=== PATIENT | male | born 1960 | race Caucasian/White ===

== ENCOUNTER 2022-04-04 15:02 | Emergency (ER) | payer MEDICAID ==
[~2022-04-04] VITALS: Ht 182.9 cm; Wt 74.8 kg
[~2022-04-04 15:02] MED LIST: ASCO500; ATOR40TA PO; Aspir 8181 MG PO; CARV3.125 PO; CEPH500 PO; CHLO25 PO; DELTASONE20 MG PO; FOLI1 PO; GLUC500; HYDACE5 PO; IBUP800 PO; Multivitamin1 EAC1 PO; SULTRIDS PO; THIA100 PO; TORSE20 PO
[2022-04-04] MEDS ORDERED: PROAIR DIGIHAL90 MCG INH (15:22)
[2022-04-04] MEDS ORDERED: ATOR40TA PO (15:22)
[2022-04-04] MEDS ORDERED: Aspirin EC81 MG PO (15:22)
[2022-04-04] MEDS ORDERED: Prinivil5 MG PO (15:22)
[2022-04-04] MEDS ORDERED: Prozac20 MG PO (15:22)
[2022-04-04] MEDS ORDERED: Flomax0.4 MG PO (15:22)
== END 2022-04-04 15:25 | disposition home or self-care (01) ==
LOC: ER 15:02
DX: Z76.0 Encounter for issue of repeat prescription (principal); F17.210 Nicotine dependence, cigarettes, uncomplicated; Z79.899 Other long term (current) drug therapy; Z79.82 Long term (current) use of aspirin
CPT/HCPCS: 99281

== ENCOUNTER 2022-05-06 10:29 | Observation (INO) | payer MEDICAID ==
[~2022-05-06 10:29] MED LIST changes: +Aspirin EC81 MG PO; +Flomax0.4 MG PO; +PROAIR DIGIHAL90 MCG INH; +Prinivil5 MG PO; +Prozac20 MG PO
[2022-05-06 11:11] LABS: BASOPHILS ABSOLUTE AUTO 0.05 K/mm3 (0.00-0.23); BASOPHILS PERCENT AUTO 0 % (0-2); EOSINOPHILS ABSOLUTE AUTO 0.23 K/mm3 (0.00-0.68); EOSINOPHILS PERCENT AUTO 1 % (0-6); Hematocrit 38.1 % (37.0-53.0); Hemoglobin 13.7 g/dL (13.5-17.5); IMMATURE GRAN ABSOLUTE AUTO 0.07 K/mm3 (0.00-0.10); IMMATURE GRAN PERCENT AUTO 0 % (0-1); LYMPHOCYTES PERCENT AUTO 11 % (21-46); MONOCYTES ABSOLUTE AUTO 0.86 K/mm3 (0.16-1.47); MONOCYTES PERCENT AUTO 5 % (4-13); Mean Corpuscular HGB 32.1 pg (26.0-34.0); Mean Corpuscular Volume 89 fL (80-100); Mean Platelet Volume 10.2 fL (9.1-12.4); NEUTROPHILS ABSOLUTE AUTO 13.57 K/mm3 (1.96-9.15); NEUTROPHILS PERCENT AUTO 82 % (41-73); Platelet Count 295 K/mm3 (150-400); RDW Coefficient Variation 12.9 % (11.7-14.2); Red Blood Cell Count 4.27 M/mm3 (4.30-5.90); White Blood Cell Count 16.58 K/mm3 (4.00-11.30)
[2022-05-06 11:28] LABS: Albumin/Globulin Ratio 0.9 (0.8-1.8); Bilirubin, Total 0.6 mg/dL (0.1-1.0); Bun/Creatinine Ratio 8.2 (12.0-20.0); Creatinine, Blood 0.61 mg/dL (0.60-1.20); Globulin, Blood 3.4 g/dL (2.2-4.0); Potassium, Blood 3.7 mmol/L (3.5-5.5); Total Protein, Blood 6.4 g/dL (6.4-8.2)
--- NOTE | 2022-05-06 17:22 | NUR ---
ADMIT PT ADMITTED TO ROOM 306. PT ORIENTED TO ROOM AND CALL LIGHT. DR. GÓMEZ NOTIFED OF WOUND TO LEFT POSTERIOR HEAD. SLUFF IN WOUND BED. ORDER FOR CALCIUM ALGINATE OBTAINED FOR TONIGHT AND TO BE REEVALUATED BY MEAT CUTTER APPRENTICE. WOUND CARE COMPLETED & PHOTO TAKEN. NS HUNG AND RUNNING 150ML/HR. PT DENIES SHORT AT THIS TIME UNLESS WOUND CARE IS BEING COMPLETED. DENIES NAUSEA, CP/PRESSURE, SOB. ALERT AND ORINETED AT THIS TIME. ENCOURAGED TO CALL BEFORE GETTING OUT OF BED. STATES UNDERSTANDING. VS REVIEWED.
[2022-05-06] MEDS ORDERED: ACET325 PO (18:28)
--- NOTE | 2022-05-06 18:29 | NUR ---
RN PLACED PHONECALL TO PT'S EX-, PHILLIP, WHO IS PT'S PRIMARY CAREGIVER. PHILLIP WAS AT HOME, AND ABLE TO DO A MED RECONCILLIATION OVER THE PHONE WITH PT'S HOME MEDS. PT GAVE VERBAL PERMISSION FOR RN TO TALK WITH PHILLIP.
[2022-05-07 07:25] LABS: BASOPHILS ABSOLUTE AUTO 0.04 K/mm3 (0.00-0.23); BASOPHILS PERCENT AUTO 0 % (0-2); EOSINOPHILS ABSOLUTE AUTO 0.31 K/mm3 (0.00-0.68); EOSINOPHILS PERCENT AUTO 3 % (0-6); Hematocrit 38.3 % (37.0-53.0); Hemoglobin 13.1 g/dL (13.5-17.5); IMMATURE GRAN ABSOLUTE AUTO 0.05 K/mm3 (0.00-0.10); IMMATURE GRAN PERCENT AUTO 1 % (0-1); LYMPHOCYTES ABSOLUTE AUTO 1.09 K/mm3 (0.84-5.20); LYMPHOCYTES PERCENT AUTO 10 % (21-46); MONOCYTES PERCENT AUTO 6 % (4-13); Mean Corpuscular HGB 31.3 pg (26.0-34.0); Mean Corpuscular HGB Conc 34.2 g/dL (31.5-36.5); Mean Corpuscular Volume 92 fL (80-100); Mean Platelet Volume 10.3 fL (9.1-12.4); NEUTROPHILS ABSOLUTE AUTO 8.75 K/mm3 (1.96-9.15); NEUTROPHILS PERCENT AUTO 80 % (41-73); Platelet Count 273 K/mm3 (150-400); RDW Coefficient Variation 13.2 % (11.7-14.2); RDW Standard Deviation 44.4 fL (35.1-46.3); Red Blood Cell Count 4.18 M/mm3 (4.30-5.90); White Blood Cell Count 10.94 K/mm3 (4.00-11.30)
[2022-05-07 07:44] LABS: Bun/Creatinine Ratio 6.4 (12.0-20.0); Calcium, Blood 7.6 mg/dL (8.5-10.1); Creatinine, Blood 0.62 mg/dL (0.60-1.20); Magnesium, Blood 1.9 mg/dL (1.6-2.4); Potassium, Blood 3.9 mmol/L (3.5-5.5)
--- NOTE | 2022-05-07 07:45 | NUR ---
AOX4, PLEASANT AND COOPERATIVE, ADEQUATE OUTPUT VOIDED INDEPENDENTLY IN URINAL. CALLS APPROPRIATELY. VSS ON RA. HEAD DRESSING CDI AT END OF SHIFT. CIWA MEASURED NO HIGHER THAN 5-6. NO MEDS GIVEN. LAST ALCOHOLIC DRINK WAS MORNING OF 05/06 PER PATIENT.
--- NOTE | 2022-05-07 14:07 | NUR ---
WOUND CARE LEFT PARIETAL WOUND IS FULL THICKNESS WITH EXPOSED STRUCTURES. WOUND BED IS PRIMARILY SLOUGH BUT BONE IS PALPABLE. WOUND WITH PURULENT DRAINAGE. CULTURE TAKEN AND DR. CARDONA NOTIFIED. CLEANSED WITH NANO ABREU TO WOUND BED, COVERED WITH EXU-DRY ROLLED GAUZE. NEXT DRESSING CHANGE DUE TUESDAY 05/09. PHOTO AND ASSESSMENT IN HARD CHART. ORDERS IN Tribe
--- NOTE | 2022-05-07 18:09 | NUR ---
SHIFT SUMMARY- PT IS A/O, PLESANT AND COOPERATIVE. HE WORKED WITH PT THIS SHIFT AND TOLORATED WELL. FAMILY WAS AT BEDSIDE THIS MORNING. DRESSING CHANGED BY WOUND CARE NURSE THIS SHIFT. CIWA SCORES HAVE BEEN STABLE. HE AMBULATED TO THE RESTROOM THIS SHIFT. HE IS EATING AND DRINKING WELL. HIS BED IS IN THE LOW POSITON AND CALL LIGHT IS WITIN REACH.
[2022-05-08 04:36] LABS: BASOPHILS ABSOLUTE AUTO 0.06 K/mm3 (0.00-0.23); BASOPHILS PERCENT AUTO 1 % (0-2); EOSINOPHILS ABSOLUTE AUTO 0.33 K/mm3 (0.00-0.68); EOSINOPHILS PERCENT AUTO 4 % (0-6); Hematocrit 38.3 % (37.0-53.0); Hemoglobin 13.3 g/dL (13.5-17.5); IMMATURE GRAN ABSOLUTE AUTO 0.05 K/mm3 (0.00-0.10); IMMATURE GRAN PERCENT AUTO 1 % (0-1); LYMPHOCYTES PERCENT AUTO 16 % (21-46); MONOCYTES ABSOLUTE AUTO 0.88 K/mm3 (0.16-1.47); MONOCYTES PERCENT AUTO 11 % (4-13); Mean Corpuscular HGB 31.7 pg (26.0-34.0); Mean Corpuscular HGB Conc 34.7 g/dL (31.5-36.5); Mean Corpuscular Volume 91 fL (80-100); Mean Platelet Volume 10.1 fL (9.1-12.4); NEUTROPHILS ABSOLUTE AUTO 5.45 K/mm3 (1.96-9.15); NEUTROPHILS PERCENT AUTO 68 % (41-73); Platelet Count 236 K/mm3 (150-400); RDW Coefficient Variation 13.2 % (11.7-14.2); RDW Standard Deviation 44.2 fL (35.1-46.3); Red Blood Cell Count 4.19 M/mm3 (4.30-5.90); White Blood Cell Count 8.07 K/mm3 (4.00-11.30)
--- NOTE | 2022-05-08 05:10 | NUR ---
PATIENT SLEPT WELL THROUGH THE NIGHT, ALERT ADN ORIENTED X4, COOPERATIVE WITH CARE. CIWA SCORE REMAINED AT 1, NO PAIN OR SOB REPORTED, HOWEVER EXP WHEEZE NOTED. PATINET CALLS TO MAKE NEEDS KNOW, BSA WITH BRP. DRESSING IS CDI. IV SALINE LOCKED AND WNL. WILL CONT TO MONITOR.
[2022-05-08 05:12] LABS: Albumin, Blood 2.9 g/dL (3.4-5.0); Bilirubin, Total 0.3 mg/dL (0.1-1.0); Bun/Creatinine Ratio 9.7 (12.0-20.0); Calcium, Blood 8.4 mg/dL (8.5-10.1); Creatinine, Blood 0.72 mg/dL (0.60-1.20); Globulin, Blood 2.8 g/dL (2.2-4.0); Magnesium, Blood 1.9 mg/dL (1.6-2.4); Potassium, Blood 4.5 mmol/L (3.5-5.5); Total Protein, Blood 5.7 g/dL (6.4-8.2)
[2022-05-08] MEDS ORDERED: CARV3.125 PO (12:40)
--- NOTE | 2022-05-08 14:39 | NUR ---
PT DISCHARGED FROM THE UNIT. IV REMOVED. MEDICATIONS FAXED TO [facility]. MEDICATIONS ADDED ON FAXED, ATTEMPTED TO CALL PT AND FAMILY TO NOTIFY THEM WITH NO ANSWER. CALLED [facility] TO NOTIFY THEM OF TWO ADDITIONS PRESCRIPTIONS AND LET THEM KNOW THE PT WAS NOT AWARE, PHARMACY SAID THEY WOULD NOTIFY PT. FAMILY DROVE PT HOME. INSTRUCTED TO ESTABLISH PRIMARY CARE, FOLLOW UP WITH WOUND CARE, CARDIOLOGY AND ADAPT. INSTRUCTED PT ON SIGNS TO WATCH FOR INCASE OF WITHRDRAWL SYMPTOMS
== END 2022-05-08 16:21 | disposition home or self-care (01) ==
LOC: ER 10:29 → MEDS 10:30
PROVIDERS: Nurse Practitioner Acute Care; Student in an Organized Health Care Education/Training Program; ADMIT Internal Medicine
DX: E87.1 Hypo-osmolality and hyponatremia (principal); F10.20 Alcohol dependence, uncomplicated; I11.0 Hypertensive heart disease with heart failure; I50.22 Chronic systolic (congestive) heart failure; N40.0 Benign prostatic hyperplasia without lower urinary tract symptoms; W19.XXXA Unspecified fall, initial encounter
CPT/HCPCS: 36415; 70450; 71045; 80048; 80053; 83735; 83880; 84295; 84443; 85025; 87070; 87075; 87077; 87147; 87186; 87205; 93005; 93010; 96365; 96366; 96372; 97116; 97162; 99285-25; A9270; G0378; G0480; J1650; J2765; J3475; J7030; J7040

== ENCOUNTER → 2023-01-21 | Outpatient (CLI) | payer OTHER ==
[~2023-01-21] MED LIST changes: +ACET325 PO
[2023-01-21 16:49] LABS: BASOPHILS ABSOLUTE AUTO 0.06 K/mm3 (0.00-0.23); BASOPHILS PERCENT AUTO 1 % (0-2); EOSINOPHILS ABSOLUTE AUTO 0.14 K/mm3 (0.00-0.68); EOSINOPHILS PERCENT AUTO 2 % (0-6); Hematocrit 37.1 % (37.0-53.0); Hemoglobin 13.1 g/dL (13.5-17.5); IMMATURE GRAN ABSOLUTE AUTO 0.05 K/mm3 (0.00-0.10); IMMATURE GRAN PERCENT AUTO 1 % (0-1); LYMPHOCYTES ABSOLUTE AUTO 1.88 K/mm3 (0.84-5.20); LYMPHOCYTES PERCENT AUTO 25 % (21-46); MONOCYTES PERCENT AUTO 12 % (4-13); Mean Corpuscular HGB 33.8 pg (26.0-34.0); Mean Corpuscular HGB Conc 35.3 g/dL (31.5-36.5); Mean Corpuscular Volume 96 fL (80-100); Mean Platelet Volume 10.4 fL (9.1-12.4); NEUTROPHILS ABSOLUTE AUTO 4.54 K/mm3 (1.96-9.15); NEUTROPHILS PERCENT AUTO 60 % (41-73); Platelet Count 215 K/mm3 (150-400); RDW Coefficient Variation 12.8 % (11.7-14.2); RDW Standard Deviation 45.2 fL (35.1-46.3); Red Blood Cell Count 3.88 M/mm3 (4.30-5.90); White Blood Cell Count 7.57 K/mm3 (4.00-11.30)
[2023-01-21 17:08] LABS: Very Low Density Lipoprot Chol 34 mg/dL (6-32)
[2023-01-21 17:17] LABS: Alanine Aminotransfer (ALT/SGP 111 U/L (12-78); Albumin/Globulin Ratio 1.2 (0.8-1.8); Alk Phos 109 U/L (50-136); Anion Gap 7 mmol/L (6-16); Aspartate Aminotrans (AST/SGOT 116 U/L (12-37); Bilirubin, Total 0.5 mg/dL (0.1-1.0); Blood Urea Nitrogen 9 mg/dL (8-24); Bun/Creatinine Ratio 10.9 (12.0-20.0); CHOL/HDL RATIO 1.6; CO2, Blood 25 mmol/L (21-32); Calcium, Blood 8.7 mg/dL (8.5-10.1); Chloride, Blood 99 mmol/L (98-108); Cholesterol 126 mg/dL (50-200); Creatinine, Blood 0.82 mg/dL (0.60-1.20); Globulin, Blood 3.2 g/dL (2.2-4.0); Glomerular Filtration Rate 98 (60-); Glucose, Blood 96 mg/dL (70-99); HDL Cholesterol 80 mg/dL (>39); LDL/HDL RATIO 0.1; Low Density Lipoprotein Chol 12 mg/dL (0-110); Potassium, Blood 3.6 mmol/L (3.5-5.5); Sodium, Blood 131 mmol/L (136-145); Total Protein, Blood 7.2 g/dL (6.4-8.2); Triglycerides 172 mg/dL (30-160)
== END | disposition home or self-care (01) ==
LOC: LAB 15:20 → LAB SHORT 15:20
PROVIDERS: Family Medicine
DX: Z51.81 Encounter for therapeutic drug level monitoring (principal); Z79.899 Other long term (current) drug therapy
CPT/HCPCS: 80053; 80061; 83036; 84443; 85025

== ENCOUNTER 2023-02-10 17:26 | Emergency (ER) | payer OTHER ==
[~2023-02-10] VITALS: Ht 182.9 cm; Wt 74.8 kg
[2023-02-10 17:38] VITALS: BP 146/93
== END 2023-02-10 21:21 | disposition home or self-care (01) ==
LOC: ER 17:26
DX: M25.521 Pain in right elbow (principal); X50.1XXA Overexertion from prolonged static or awkward postures, initial encounter; Z79.899 Other long term (current) drug therapy; J44.9 Chronic obstructive pulmonary disease, unspecified; I50.9 Heart failure, unspecified; F17.210 Nicotine dependence, cigarettes, uncomplicated
CPT/HCPCS: 73080; 99283-25